=== PATIENT | female | born 1975 | race Caucasian/White ===

== ENCOUNTER 2020-11-05 17:08 | Emergency (ER) | payer BC, SELFPAY ==
[2020-11-05 18:10] VITALS: BP 124/79; PULSE 70; RESP 19; TEMP 36.7; O2SAT 100; BMI 19.5
--- NOTE | 2020-11-05 18:50 | HMH.EDUTC ---
[facility] [place] Disposition Clinical Impression: Sinusitis Qualifiers: Sinusitis location: unspecified location Chronicity: unspecified Qualified Code(s): J32.9 - Chronic sinusitis, unspecified Disposition: Home, Self-Care Condition on Discharge: Good Instructions: Sinusitis, DI for Sinusitis, Methylprednisolone, Azithromycin Additional Instructions: *Monitor Temp, Over the counter Motrin or Tylenol as directed/as needed Tylenol every 4 hours and Motrin every 6 hours (as long as your family doctor has told you that you can take it) for fever or pain. and straight to ER if unable to lower temp less than 101.0 after medication given *Warm salt water gargles may help to soothe the throat *Throat Lozenges *Warm fluids like tea with honey may help to soothe the throat *Sleep elevated *Humidifier/Vaporizer Take medication as prescribed Follow up IMMEDIATELY for new or worsening symptoms or no Noticeable improvement over the next 48-72 hours. 911 for difficulty breathing or swallowing Prescriptions: methylPREDNISolone [Medrol 4mg tab] 4 mg PO DIRECTED #21 tab Transmission Status: Pending to [facility] Azithromycin [Z-Sd 250mg Tab] 250 mg PO DIRECTED #6 tab Transmission Status: Pending to [facility] Referrals: Genevieve Ramos [Primary Care Provider] - As needed Time of Disposition: 18:58 Medical Decision Making - Wilian Inquiry Pt receiving controlled substance: No Wilian was queried for this patient: No Vital Signs: 11/05/20 18:10 Temperature 98.1 F Temperature Source Oral Pulse Rate [Right Brachial] 70 Respiratory Rate 19 Blood Pressure [Right Arm] 124/79 Blood Pressure Mean [Right Arm] 94 Blood Pressure Source [Right Arm] Automatic Cuff Blood Pressure Position [Right Arm] Sitting 02 Sat by Pulse Oximetry 100 Oxygen Delivery Method Room Air Medical Decision Narrative: Patient state that she has taken azithromycin and Medrol in the past without reactions or complications [facility] [place] HPI - General Stated complaint: Possible Sinus Inf Time Seen by Provider: 11/05/20 18:50 Mode of Arrival: Ambulatory Source of Information: Patient Limitations: No Limitations Description of Symptoms (Recalled from Triage Doc. by RN): PATIENT C/O SINUS PRESSURE AND CONGESTION X 3 DAYS HEENT Symptoms (Recalled from RN notes): Yes Resp Symptoms (Recalled from RN notes): No Skin Symptoms (Recalled from RN notes): No MS Symptoms (Recalled from RN notes): No Functional Status (Recalled from RN notes): WNL Other (Recalled from RN notes): Yes - History of Present Illness Provider Complaint: Patient state that she has been having sinus problems for several weeks and thought it was allergies and it has continued to get worse State that she is having pressure behind her eyes and feels like she is having drainage in the back of her throat and making her throat raw States that today she had a sinus headache and felt like it was worse so she came in to get it checked - Related Data Home Medications Medication Instructions Recorded Confirmed Rizatriptan Benzoate [Rizatriptan] 10 mg PO DAILYP PRN 11/05/20 11/05/20 Previous Rx's Medication Instructions Recorded Azithromycin [Z-Sd 250mg Tab] 250 mg PO DIRECTED #6 tab 11/05/20 methylPREDNISolone [Medrol 4mg 4 mg PO DIRECTED #21 tab 11/05/20 tab] Allergies Allergy/AdvReac Type Severity Reaction Status Date / Time ciprofloxacin Allergy Verified 11/05/20 18:23 metronidazole [From Flagyl] Allergy Verified 11/05/20 18:23 Penicillins Allergy Verified 11/05/20 18:23 sulfamethoxazole Allergy Verified 11/05/20 18:23 [From Bactrim] trimethoprim [From Bactrim] Allergy Verified 11/05/20 18:23 - Worker's Comp Is this a Worker's Comp case?: No H History - Hepatitis A Screen Drug use history?: No High risk sexual behaviors?: No History of sexually transmitted infection?: No Currently employed?: No Childcare worker?: No D
[2020-11-05 19:11] VITALS: BP 124/79; PULSE 70; RESP 19; TEMP 36.7; O2SAT 100
== END 2020-11-05 19:13 | disposition home or self-care (01) ==
PROVIDERS: Emergency Provider Nurse Practitioner; PCP Family Medicine
DX: J32.9 Chronic sinusitis, unspecified (principal); Z88.0 Allergy status to penicillin
CPT/HCPCS: 99202; G0463

== ENCOUNTER 2021-09-05 09:02 | Emergency (ER) | payer BC, SELFPAY ==
[2021-09-05 09:20] VITALS: BP 119/86; PULSE 69; RESP 17; TEMP 36.7; O2SAT 100; BMI 19.5
--- NOTE | 2021-09-05 09:24 | HMH.EDUTC ---
[facility] [place] Disposition Clinical Impression: Sinusitis Qualifiers: Sinusitis location: unspecified location Chronicity: unspecified Qualified Code(s): J32.9 - Chronic sinusitis, unspecified Disposition: Home, Self-Care Condition on Discharge: Good Instructions: Sinusitis, DI for Sinusitis, Doxycycline, Methylprednisolone Additional Instructions: *Monitor Temp, Over the counter Motrin or Tylenol as directed/as needed Tylenol every 4 hours and Motrin every 6 hours (as long as your family doctor has told you that you can take it) for fever or pain. and straight to ER if unable to lower temp less than 101.0 after medication given *Warm salt water gargles may help to soothe the throat *Throat Lozenges *Warm fluids like tea with honey may help to soothe the throat *Sleep elevated *Humidifier/Vaporizer Take medication as prescribed Return if needed Follow up IMMEDIATELY for new or worsening symptoms or no Noticeable improvement over the next 48-72 hours. 911 for difficulty breathing or swallowing Prescriptions: Doxycycline Monohydrate [Doxycycline Wheeler 100mg Tab] 100 mg PO BID 10 Days #20 tab Transmission Status: Pending to [facility] methylPREDNISolone [Medrol 4mg tab] 4 mg PO DIRECTED #21 tab Transmission Status: Pending to [facility] Referrals: Genevieve Ramos [Primary Care Provider] - As needed Time of Disposition: 09:35 Medical Decision Making - Wilian Inquiry Pt receiving controlled substance: No Wilian was queried for this patient: No Vital Signs: 09/05/21 09:20 Temperature 98.1 F Temperature Source Oral Pulse Rate [Left] 69 Respiratory Rate 17 Blood Pressure [Right Arm] 119/86 Blood Pressure Mean [Right Arm] 97 02 Sat by Pulse Oximetry 100 [facility] [place] HPI - General Stated complaint: sinus infection Time Seen by Provider: 09/05/21 09:24 Mode of Arrival: Ambulatory Source of Information: Patient Limitations: No Limitations Description of Symptoms (Recalled from Triage Doc. by RN): pt c/o bilateral ear aches and sinus pressure. ongoing x2 days. HEENT Symptoms (Recalled from RN notes): Yes Resp Symptoms (Recalled from RN notes): No Skin Symptoms (Recalled from RN notes): No MS Symptoms (Recalled from RN notes): No Functional Status (Recalled from RN notes): wnl - History of Present Illness Provider Complaint: Patient states that she has been having sinus issues for several weeks and took a zpack the first of July and it helped but now it is back States that she is having pain/pressure behind her eyes and in her ears and feels pressure behind her eyes when she bends over States that it has got worse over the last couple of days so she came in to get checked out - Related Data Home Medications Medication Instructions Recorded Confirmed Rizatriptan Benzoate [Rizatriptan] 10 mg PO DAILYP PRN 11/05/20 06/02/21 Previous Rx's Medication Instructions Recorded azithromycin 250 mg tablet 250 mg PO QDAY 5 Days #6 tab 06/02/21 Doxycycline Monohydrate 100 mg PO BID 10 Days #20 tab 09/05/21 [Doxycycline Wheeler 100mg Tab] methylPREDNISolone [Medrol 4mg 4 mg PO DIRECTED #21 tab 09/05/21 tab] Allergies Allergy/AdvReac Type Severity Reaction Status Date / Time ciprofloxacin Allergy Verified 09/05/21 09:23 metronidazole [From Flagyl] Allergy Verified 09/05/21 09:23 Penicillins Allergy Verified 09/05/21 09:23 sulfamethoxazole Allergy Verified 09/05/21 09:23 [From Bactrim] trimethoprim [From Bactrim] Allergy Verified 09/05/21 09:23 flu vaccine Allergy Severe Anaphylaxis Uncoded 06/02/21 17:12 - Worker's Comp Is this a Worker's Comp case?: No H History - Hepatitis A Screen Drug use history?: No High risk sexual behaviors?: No History of sexually transmitted infection?: No Currently employed?: No Childcare worker?: No Do you have indoor plumbing?: Yes Do you have electricity?: Yes Attestation statement:: This patient has been screene
[2021-09-05 09:39] VITALS: BP 119/86; PULSE 69; RESP 17; TEMP 36.7
== END 2021-09-05 09:42 | disposition home or self-care (01) ==
PROVIDERS: Emergency Provider Nurse Practitioner; PCP Family Medicine
DX: J32.9 Chronic sinusitis, unspecified (principal)
CPT/HCPCS: 99212; G0463